=== PATIENT | male | born 2000 | race Asian ===

== ENCOUNTER 2022-06-19 23:45 | Inpatient (IN) ==
[2022-06-20] MEDS ORDERED: ONDANSETRON INJ 2 MG/ML 2 ML VIAL IV STA (00:07)
[2022-06-20] MEDS: MoRPHine SULFATE 4 MG/ML 1 ML CARP\\VIAL IV PRN ×2 (00:13→01:19)
[2022-06-20] MEDS ORDERED: SODIUM CHLORIDE 0.9% 1000ML 1,000 ML IV SCH (00:15)
[2022-06-20 00:32] LABS: Basophils # (auto) 0.02 K/uL (0-0.2); Basophils % (auto) 0.2 %; Eosinophils # (auto) 0.05 K/uL (0-0.50); Eosinophils % (auto) 0.5 %; Hematocrit (blood only) 43.9 % (40.1-51.0); Hemoglobin 15.3 g/dl (14.0-18.0); Immature Granulocytes # (auto) 0.03 K/uL (0.00-0.02); Immature Granulocytes % (auto) 0.3 %; Lymphocytes # (auto) 1.28 K/uL (1.2-3.4); Lymphocytes % (auto) 12.6 %; Mean Corpuscular Hemoglobin 29.8 pg (25.0-34.0); Mean Corpuscular Hgb Conc 34.9 g/dL (32.0-36.0); Mean Corpuscular Volume 85.4 fL (80.0-100.0); Mean Platelet Volume 12.4 fL (9.4-12.4); Monocytes # (auto) 0.85 K/uL (0.24-0.82); Monocytes % (auto) 8.4 %; Neutrophils # (auto) 7.93 K/uL (1.4-6.5); Platelet Count 165 K/uL (130-400); RDW Coefficient of Variation 11.5 % (11.5-14.5); RDW Standard Deviation 35.6 fL (36.4-46.3); Red Blood Count 5.14 M/uL (4.63-6.08); White Blood Count 10.16 K/ul (4.8-10.8)
[2022-06-20 00:59] LABS: Albumin Globulin Ratio 1.5 (0.9-2); Albumin Level 4.7 gm/dl (3.4-5.0); BUN Creatinine Ratio 9.4 (10-20); Calcium 9.2 mg/dl (8.5-10.1); Creatinine Clr Calc Pharmacy 152.4 ml/min; Est GFR (African American) 145.4 ml/min; Est GFR (Non-African American) 125.4 ml/min; Globulin 3.2 gm/dl (2.5-4.0); Potassium 3.9 mmol/L (3.5-5.1); Total Protein 7.9 gm/dl (6.0-8.3)
--- NOTE | 2022-06-20 01:38 | Emergency Department Note ---
History of Present Illness General Chief complaint: Abdominal Pain Stated complaint: ABD PAIN - SEEN EARLIER FOR ACUTE CHOLECYSTITIS Time Seen by Provider: 06/19/22 23:51 History of Present Illness Maximum Pain Intensity: 6 This is a 22-year-old male returning to the ER complaining of worsening abdominal pain. The patient was seen and evaluated earlier this complaint and did have a CT scan that did return as positive for acute cholecystitis. The patient was evaluated at bedside by general surgery at that visit, who recommended admission with antibiotics and likely surgical intervention. The patient elected for more conservative treatment with antibiotics and ultimately left AMA around 6 PM. The patient states that he went home and ate food around 6:30 PM, and by 7 PM had worsening pain. He did try to get a few hours of sleep before becoming unable to tolerate the pain any longer. The patient now returns to the ER for further evaluation. He has not had fevers or chills. No vomiting. He rates the pain primarily a 6/10 and more left-sided than right- sided. No lower pain. Home Medications Medication Instructions Recorded Confirmed Type amoxicillin 875 mg-potassium 1 tab PO BID #28 tabs 06/19/22 06/20/22 Rx clavulanate 125 mg tablet Allergies Allergy/AdvReac Type Severity Reaction Status Date / Time No Known Allergies Allergy Unverified 06/19/22 15:27 Past Med/Surg History Medical History No pertinent family history No pertinent past medical history Surgical History No pertinent past surgical history Social History Smoking Status: Never smoker Preferred Language: Albanian Communication Tools: IPad Feels Safe at Home: Yes Review of Systems A total of 10 systems reviewed and were otherwise negative Physical Exam Vital Signs Vital Signs - 24 hr 06/19/22 23:50 06/20/22 00:15 06/20/22 01:21 Temperature 36.6 C Temperature Source Temporal Artery Scan Pulse Rate 85 Pulse Rate [Finger] 73 Respiratory Rate 18 18 Respiratory Effort / Characteristics Non-Labored Spontaneous Respiratory Depth Normal Normal Blood Pressure 117/69 Blood Pressure [Right Arm] 114/68 126/70 Blood Pressure Mean 85 Blood Pressure Mean [Right Arm] 83 88 Pulse Oximetry 96 98 Oxygen Delivery Method Room Air Sepsis Recent Fever Within 48 Hours No Sepsis New/Unexplained Change in Mental Status N/A Sepsis Action Taken by Nursing No Action Required 06/20/22 02:00 Temperature Temperature Source Pulse Rate Pulse Rate [Finger] 71 Respiratory Rate 18 Respiratory Effort / Characteristics Respiratory Depth Blood Pressure Blood Pressure [Right Arm] 122/75 Blood Pressure Mean Blood Pressure Mean [Right Arm] 90 Pulse Oximetry 98 Oxygen Delivery Method Room Air Sepsis Recent Fever Within 48 Hours Sepsis New/Unexplained Change in Mental Status Sepsis Action Taken by Nursing VITALS: Vitals are noted on the nurse's note and reviewed by myself. Vital s igns stable. GENERAL: Well-developed, well-nourished, male, who is in no acute distress and resting comfortably. Patient is cooperative with the examination. HEAD: Normocephalic atraumatic. HEART: Regular rate and rhythm without murmurs gallops or rubs. LUNGS: Clear to auscultation bilaterally without wheezes, rales or rhonchi. No retractions or accessory muscle use. ABDOMEN: Positive normal bowel sounds x 4. Soft with upper abdominal tenderness on both the right and left sides. No lower tenderness. No CVA tenderness. MUSCULOSKELETAL: No muscle atrophy, erythema, or edema noted. Full range of motion in all extremities. NEURO: Patient was alert and oriented to person place and time. CN II through XII grossly intact. Course Administered Medications Morphine Sulfate (Morphine Sulfate 4 Mg/Ml 1 Ml Carp\Vial) 4 mg IV Q30M PRN PRN Reason: Pain Stop: 07/04/22 00:06 Last Admin: 06/20/22 01:19 Dose: 4 mg Documented By: Admin: 06/20/22 00:13 Dose: 4 mg Documented By: DANILO Discontinued Medications Sodium Chloride (Nss 1000ml) 1,000 mls @ 999 mls/hr IV .Q1H1M JENAE Stop: 06/20/22 01:15 Last Infusion: 06/20/22 01:15 Dose: 0 mls/hr Documented By: Admin: 06/20/22 00:12 Dose: 999 mls/hr Documented By: DANILO Ondansetron HCl (Ondansetron Inj 2 Mg/Ml 2 Ml Vial) 4 mg IV NOW STA Stop: 06/20/22 00:08 Last Admin: 06/20/22 00:13 Dose: 4 mg Documented By: DANILO Medical Decision Making Differential Diagnosis Differential diagnosis: Etiologies such as biliary colic, cholecystitis, hepatitis, pancreatitis, cardiac disease, pancreatitis, gastritis, peptic ulcer disease, appendicitis, cystitis, diverticulitis, mesenteric ischemia, inflammatory bowel disease, ileus, bowel obstruction, testicular/adnexal torsion, aortic pathology, shingles, as well as others were considered Laboratory Data Result diagrams: 06/19/22 00:17 06/19/22 00:17 Lab Results 06/19/22 06/19/22 Range/Units 00:17 00:17 WBC 10.16 (4.8-10.8) K/ul RBC 5.14 (4.63-6.08) M/uL Hgb 15.3 (14.0-18.0) g/dl Hct 43.9 (40.1-51.0) % MCV 85.4 (80.0-100.0) fL MCH 29.8 (25.0-34.0) pg MCHC 34.9 (32.0-36.0) g/dL RDW Std Deviation 35.6 L (36.4-46.3) fL RDW Coeff of Yasir 11.5 (11.5-14.5) % Plt Count 165 (130-400) K/uL MPV 12.4 (9.4-12.4) fL Immature Gran % (Auto) 0.3 % Neut % (Auto) 78.0 % Lymph % (Auto) 12.6 % [place] % (Auto) 8.4 % Eos % (Auto) 0.5 % Baso % (Auto) 0.2 % Neut # (Auto) 7.93 H (1.4-6.5) K/uL Lymph # (Auto) 1.28 (1.2-3.4) K/uL [place] # (Auto) 0.85 H (0.24-0.82) K/uL Eos # (Auto) 0.05 (0-0.50) K/uL Baso # (Auto) 0.02 (0-0.2) K/uL Immature Gran # (Auto) 0.03 H (0.00-0.02) K/uL Sodium 140 (136-145) mmol/L Potassium 3.9 (3.5-5.1) mmol/L Chloride 104 (98-107) mmol/L Carbon Dioxide 31 (21-32) mmol/L Anion Gap 5 (3-11) BUN 8 (6-23) mg/dl Creatinine 0.85 (0.6-1.4) mg/dl Est Cr Clr Drug Dosing 152.4 ml/min Est GFR ( Amer) 145.4 ml/min Est GFR (Non-Af Amer) 125.4 ml/min BUN/Creatinine Ratio 9.4 L (10-20) Glucose 88 (70-99(Fasting)) mg/dl Calcium 9.2 (8.5-10.1) mg/dl Total Bilirubin 1.0 (0.2-1.0) mg/dl AST 13 (13-39) U/L ALT 9 (7-52) U/L Alkaline Phosphatase 52 (34-104) U/L Total Protein 7.9 (6.0-8.3) gm/dl Albumin 4.7 (3.4-5.0) gm/dl Globulin 3.2 (2.5-4.0) gm/dl Albumin/Globulin Ratio 1.5 (0.9-2) Lipase 13 (11-82) U/L Imaging Data Radiologist's Impression: Preliminary Findings Only See Final Report For Complete FindingsUS RUQ: No prior exam for comparison. Limited visualization of the pancreas with visualized portion unremarkable. The liver measures 17.4 cm, otherwise unremarkable pain Over distended gallbladder with gallbladder wall measuring 2.1 mm. There is pericholecystic fluid with areas of mild wall edema. There is sludge within the gallbladder with multiple small stones. These findings suggest acute cholecystitis. The common bile duct measures 4.5 mm, within normal limits. Questionable stones at the level of the cystic duct. Mild free fluid near the gallbladder fossa. Radiologist:Claudia Camarena MD [facility] Narrative Physical exam and history were performed. Nursing notes, EMR, and Medication List were personally reviewed. Patient appears to have acute cholecystitis on CT scan a few hours ago. The patient left AGAINST MEDICAL ADVICE at initial visit, but now returns as pain is worse and continues. He does not appear toxic on examination and is afebrile. IV access was established and labs were obtained. He was hydrated with normal saline and given IV morphine and IV Zofran for comfort. Patient's blood work is as above and was reviewed. He does not have a significantly elevated white blood cell count, gross anemia, bandemia, or significant electrolyte imbalance. Lipase and transaminases are not diagnostic. COVID from earlier today was negative and this was not repeated. I did reach out to general surgery, Dr. Rainey, who had seen the patient earlier. Recommendation was for ultrasound, which was performed and reviewed by myself and radiology continuing to show acute cholecystitis. Dr. Rainey will admit the patient for further care. Please see Dr. Rainey's dictation for further patient course, plan, disposition. The chart was completed utilizing [employer] Voice Recognition Software. Grammatical errors, random word insertions, pronoun errors, and incomplete sentences are an occasional consequence of this system due to software limitations, ambient noise, and hardware issues. Any formal questions or concerns about the content, text, or information contained within the body of this dictation should be directly addressed to the provider for clarification. . Impression & Plan Acute cholecystitis Discharge Plan Visit Data Chief Complaint: Abdominal Pain Stated Complaint: ABD PAIN - SEEN EARLIER FOR ACUTE CHOLECYSTITIS ED Provider: Savana Obrien ED Midlevel Provider: Berny Dolan Discharge Problem: Acute cholecystitis Patient Disposition: Admitted As Inpatient Discharge Instructions Interventions: ED Discharge Assessment Last Done: 06/20/22 04:28 Forms Stand Alone Forms: [facility] Prescriptions Prescriptions: No Action amoxicillin-pot clavulanate 875-125 mg tablet 1 tab PO BID Qty: 28 0RF Referrals Referrals: [facility] [Primary Care Provider] -
--- NOTE | 2022-06-20 02:22 | Surgery Consultation ---
Date of Consultation June 20, 2022 Assessment & Plan (1) Acute cholecystitis: pt is a 22 year-old male who presents to ER with one day history abdominal pain, IMP: acute cholecystitis, cholelithiasis, Plan : I recommend to admit pt to hospital , NPO IV fluid, iv antibiotic, control pain, base on CT finding- abnormally gallbladder position, order MRCP, once confirm diagnosis, I recommend to do laparoscopic cholecystectomy, possible open or cholangiogram, D/W benefits, risks and alternatives of the surgery, the risks - infection, bleeding, injury other organs, CBD stone may need ERCP, incisional hernia, pt understood, he agrees with the plan and surgery, I answered all questions, History of Present Illness Reason for Consultation: acute cholecystitis Requesting Physician: Savana Obrien MD History of Present Illness History of Present Illness General Chief complaint: Abdominal Pain Stated complaint: ABD PAIN - SEEN EARLIER FOR ACUTE CHOLECYSTITIS Time Seen by Provider: 06/19/22 23:51 History of Present Illness Maximum Pain Intensity: 6 This is a 22-year-old male returning to the ER complaining of worsening abdominal pain. The patient was seen and evaluated earlier this complaint and did have a CT scan that did return as positive for acute cholecystitis. The patient was evaluated at bedside by general surgery at that visit, who recommended admission with antibiotics and likely surgical intervention. The patient elected for more conservative treatment with antibiotics and ultimately left AMA around 6 PM. The patient states that he went home and ate food around 6:30 PM, and by 7 PM had worsening pain. He did try to get a few hours of sleep before becoming unable to tolerate the pain any longer. The patient now returns to the ER for further evaluation. He has not had fevers or chills. No vomiting. He rates the pain primarily a 6/10 and more left-sided than right- sided. No lower pain. I ( Sonia Rainey MD ) got a call for re-consult acute cholecystitis, I reviewed pt's H/P, labs, U/S study and CT scan with pt, pt saw pt early for acute abdominal pain, I recommend to admit pt hospital to do MRCP then do laparoscopic cholecystectomy, but pt wants to go home, at that time, pt had no significant abdominal pain, pt stayed at home 4 hours later, pt developed LUQ and RUQ pain again, then pt came to ER . Home Medications Medication Instructions Recorded Confirmed Type amoxicillin 875 mg-potassium 1 tab PO BID #28 tabs 06/19/22 06/20/22 Rx clavulanate 125 mg tablet Allergies Allergy/AdvReac Type Severity Reaction Status Date / Time No Known Allergies Allergy Unverified 06/19/22 15:27 Past Med/Surg History Medical History No pertinent family history No pertinent past medical history Surgical History No pertinent past surgical history Social History Smoking Status: Never smoker Preferred Language: [place]ese Communication Tools: IPad Feels Safe at Home: Yes Allergies Allergy/AdvReac Type Severity Reaction Status Date / Time No Known Allergies Allergy Unverified 06/19/22 15:27 Home Medications Medication Instructions Recorded Confirmed Type amoxicillin 875 mg-potassium 1 tab PO BID #28 tabs 06/19/22 06/20/22 Rx clavulanate 125 mg tablet Patient History Medical History No pertinent family history No pertinent past medical history Surgical History No pertinent past surgical history Social History Smoking Status: Never smoker Preferred Language: [place]ese Communication Tools: IPad Feels Safe at Home: Yes Physical Exam Constitutional: WD/WN, vitals as above Eyes: PERRL, conjunctivae normal, anicteric sclerae Neck: trachea midline, no thyromegaly Respiratory: normal respiratory effort, lungs clear to auscultation Cardiovascular: RRR, no murmur, no edema Gastrointestinal (Abdomen): soft, tenderness at LUQ and RUQ area, no rebound pain, no distend, BS +, Musculoskeletal: no cyanosis or clubbing, extremities motor strength 5/5 Neurologic: patellar DTR's 2+ bilat, sensation intact Psychiatric: A+Ox3, euthymic affect Results & Data ([facility]) Vital Signs (Past 12 Hours) Vital Signs Temp Pulse Pulse Resp BP BP Pulse Ox 06/20/22 01:21 73 18 126/70 98 06/20/22 00:15 114/68 06/19/22 23:50 36.6 C 85 18 117/69 96 O2 Del Method 06/20/22 01:21 Room Air 06/20/22 00:15 06/19/22 23:50 Laboratory Results Abnormal lab results 06/19/22 06/19/22 Range/Units 00:17 00:17 RDW Std Deviation 35.6 L (36.4-46.3) fL Neut # (Auto) 7.93 H (1.4-6.5) K/uL [place] # (Auto) 0.85 H (0.24-0.82) K/uL Immature Gran # (Auto) 0.03 H (0.00-0.02) K/uL BUN/Creatinine Ratio 9.4 L (10-20) Diagnostic Findings CT SCAN OF THE ABDOMEN AND PELVIS WITH IV CONTRAST CLINICAL HISTORY: Epigastric abdominal pain. COMPARISON STUDY: No priors. TECHNIQUE: Following the IV administration of 95 cc of Optiray 350, CT scan of the abdomen and pelvis is performed from the lung bases to the proximal femora. Images are reviewed in the axial, sagittal, and coronal planes. IV contrast was administered without complication. A dose lowering technique was utilized adhering to the principles of ALARA. CT DOSE: 320.09 mGy.cm FINDINGS: Lung bases: The heart is normal in size and without pericardial effusion. The lung bases are clear. Liver: The contrast-enhanced liver is normal in size, contour, and attenuation. There is no intrahepatic biliary ductal dilatation. The hepatic veins and portal veins are patent. Gallbladder: The gallbladder is markedly distended. The wall is thickened and edematous and there is surrounding fluid and inflammation. The appearance is con sistent with acute cholecystitis. A 12 mm calcified gallstone within the gallbladder neck or cystic duct as seen on axial image #103. The gallbladder is abnormally positioned, with the gallbladder neck extending below the right hemidiaphragm abutting the right adrenal gland. Spleen: Normal in size and attenuation. Pancreas: Unremarkable. Adrenal glands: Unremarkable. Kidneys: The contrast enhanced kidneys are normal in size and without hydronephrosis. The kidneys enhance symmetrically. Abdominal vasculature: The abdominal aorta is normal in course and caliber. Bowel: Mild fecal retention is seen throughout the colon. There is no bowel obstruction. The appendix is well-visualized and normal. Peritoneum: There is no intraperitoneal free air or abdominal ascites. Lymphadenopathy: None. Pelvic viscera: The bladder, prostate, and seminal vesicles are normal as visualized. Skeletal structures: No lytic or blastic lesions are seen. IMPRESSION: 1. Severe acute cholecystitis. 2. A 12 mm calcified gallstone is seen within the gallbladder neck or cystic duct in the right upper quadrant. 3. Cholecystitis is likely related to a large obstructing stone; however, the gallbladder is abnormally positioned extending posteriorly/superiorly below the right hemidiaphragm adjacent to the adrenal gland. In rare cases, gallbladder torsion can cause cholecystitis. Emergent surgical assessment is advised. 4. There is no intrahepatic biliary ductal dilatation. 5. Additional findings as above. U/S study, acute cholecystitis with multiple stones,
[2022-06-20] MEDS ORDERED: HYDROmorphone INJ 1 MG/ML SYRINGE IV PRN (04:20)
[2022-06-20] MEDS ORDERED: MoRPHine SULFATE 4 MG/ML 1 ML CARP\\VIAL IV PRN (05:40)
[2022-06-20] MEDS ORDERED: ONDANSETRON INJ 2 MG/ML 2 ML VIAL IV PRN (05:40)
[2022-06-20] MEDS ORDERED: MoRPHine SULFATE 2 MG/ML CARP IV PRN (05:40)
[2022-06-20] MEDS ORDERED: PIPERACILLIN/TAZOBACTAM 3.375 GM in DEXTROSE 5% 100 ML IV ONE (06:00)
[2022-06-20] MEDS: D5W AND 1/2NSS + 20MEQ KCL 20 MEQ/1,000 ML BAG IV SCH ×2 (06:28→19:56)
--- NOTE | 2022-06-20 07:15 | Ultrasound Report ---
US gallbladder CLINICAL HISTORY: Cholecystitis on ct. COMPARISON STUDY: CT of the abdomen and pelvis June 19, 2022. FINDINGS: Liver is sonographically normal. There is no biliary ductal dilatation. Common bile measure s 4 mm in caliber. Pancreatic body is normal. Head and tail are obscured. The gallbladder is distende d and filled with sludge. There are multiple small gallstones as well as a immobile stone within the gallbladder neck. Sonographic Muniz sign could not be assessed for in this patient given pain medica tion administration. Gallbladder wall is edematous and thickened, measuring up to 7 mm in thickness. IMPRESSION: 1. Findings suggestive of acute cholecystitis. Surgical consultation is recommended. 2. No biliary ductal dilatation. ACT 112: Negative or not required by law. Electronically signed by: Tez Thurman M.D. 06/20/2022 7:13 AM
[2022-06-20 07:51] LABS: Albumin Globulin Ratio 1.8 (0.9-2); Albumin Level 4.2 gm/dl (3.4-5.0); BUN Creatinine Ratio 8.4 (10-20); Bilirubin,Total 1.2 mg/dl (0.2-1.0); Calcium 8.6 mg/dl (8.5-10.1); Creatinine Clr Calc Pharmacy 155.8 ml/min; Est GFR (African American) 146.8 ml/min; Est GFR (Non-African American) 126.7 ml/min; Globulin 2.4 gm/dl (2.5-4.0); Potassium 3.8 mmol/L (3.5-5.1); Total Protein 6.6 gm/dl (6.0-8.3)
--- NOTE | 2022-06-20 08:39 | Magnetic Resonance Report ---
MR MRCP HISTORY: 22 years-old Male acute cholecystitis acute right upper quadrant abdominal pain COMPARISON: Gallbladder ultrasound of same day, CT abdomen and pelvis 06/19/2022. TECHNIQUE: MRCP was obtained without the use of IV contrast according to institutional protocol. FINDINGS: Study is mildly motion degraded. The imaged lower chest is unremarkable. The spleen, pancreas, liver and adrenal glands are within normal limits. Unremarkable kidneys without hydronephrosis. Aorta and I VC are unremarkable. No bowel obstruction or bowel wall thickening. Unremarkable soft tissues and oss eous structures. 12 mm gallstone is again noted within the gallbladder neck versus proximal cystic duct. The gallbladd er is distended and demonstrates wall thickening with pericholecystic fluid and edema. Trace ascites tracks along the inferior right hepatic lobe into the right paracolic gutter. No intrahepatic or extr ahepatic biliary ductal dilation. The common bile duct measures 4 mm. No choledocholithiasis. No panc reatic ductal dilation. IMPRESSION: 1. Cholelithiasis with acute cholecystitis. 2. No biliary ductal dilation or choledocholithiasis. 3. The exam is motion degraded. ACT 112: Negative or not required by law. The above report was generated using voice recognition software. It may contain grammatical, syntax o r spelling errors. Electronically signed by: Lux Whitehead M.D. 06/20/2022 8:38 AM
[2022-06-20] MEDS: PANTOprazole 40 MG in SYRINGE 0 ML IV SCH ×2 (09:35→19:59)
[2022-06-20] MEDS: HYDROmorphone INJ 0.5 MG/0.5 ML SYR IV PRN ×2 (09:39→18:14)
--- NOTE | 2022-06-20 10:46 | Surgery Progress Note ---
Date of Service June 20, 2022 Assessment & Plan (1) Acute cholecystitis: Plan: pt is a 22 year-old male who presents to ER with one day history abdominal pain, IMP: acute cholecystitis, cholelithiasis, Plan : I recommend to admit pt to hospital , NPO IV fluid, iv antibiotic, control pain, base on CT finding- abnormally gallbladder position, order MRCP, once confirm diagnosis, I recommend to do laparoscopic cholecystectomy, possible open or cholangiogram, D/W benefits, risks and alternatives of the surgery, the risks - infection, bleeding, injury other organs, CBD stone may need ERCP, incisional hernia, pt understood, he agrees with the plan and surgery, I answered all questions, 06/20/2022 10:48AM, I reviewed MRCP with pt, diagnosis- acute cholecystitis, cholelithiasis, I recommend to do laparoscopic cholecystectomy, possible open, or cholangiogram, D/W benefits, risks and alternatives of the surgery, the risks - infection,bleeding, injury other organs, biliary leak, may need ERCP, incision hernia, but pt refused to surgery, pt said his family want to keep his gallbladder, I indicated may cause gangrenous gallbladder , perforation, sepsis and , pt understood, he is still refused to do surgery, I answered all questions, base on pt has LUQ pain, consult GI for EGD to R/O gastric ulcer, pt agrees with the EGD, continue conservative treatment, Admission and Anticipated Discharge Date Admission Date: June 20, 2022 Subjective pt had MRCP done, I reviewed MRCP with pt, IMPRESSION: 1. Cholelithiasis with acute cholecystitis. 2. No biliary ductal dilation or choledocholithiasis. 3. The exam is motion degraded. pt is still have LUQ and epigastric pain, no nausea, no vomiting, no fever, Physical Exam Constitutional: WD/WN, vitals as above Eyes: PERRL, conjunctivae normal, anicteric sclerae Neck: trachea midline, no thyromegaly Respiratory: normal respiratory effort, lungs clear to auscultation Cardiovascular: RRR, no murmur, no edema Gastrointestinal (Abdomen): mild tenderness at LUQ and epigatsric and RUQ area, no rebound pain, no distend, BS +, Musculoskeletal: no cyanosis or clubbing, extremities motor strength 5/5 Neurologic: patellar DTR's 2+ bilat, sensation intact Psychiatric: A+Ox3, euthymic affect Results & Data ([facility]) Vital Signs (Past 12 Hours) Vital Signs Temp Pulse Pulse Resp BP BP Pulse Ox 06/20/22 05:00 37.4 C 68 14 119/69 96 06/20/22 04:46 70 18 120/58 L 98 06/20/22 02:00 71 18 122/75 98 06/20/22 01:21 73 18 126/70 98 06/20/22 00:15 114/68 06/19/22 23:50 36.6 C 85 18 117/69 96 O2 Del Method 06/20/22 05:00 Room Air 06/20/22 04:46 Room Air 06/20/22 02:00 Room Air 06/20/22 01:21 Room Air 06/20/22 00:15 06/19/22 23:50 Laboratory Results Abnormal lab results 06/19/22 06/19/22 06/20/22 Range/Units 00:17 00:17 05:45 RDW Std Deviation 35.6 L (36.4-46.3) fL Neut # (Auto) 7.93 H (1.4-6.5) K/uL [place] # (Auto) 0.85 H (0.24-0.82) K/uL Immature Gran # (Auto) 0.03 H (0.00-0.02) K/uL BUN/Creatinine Ratio 9.4 L 8.4 L (10-20) Total Bilirubin 1.2 H (0.2-1.0) mg/dl Globulin 2.4 L (2.5-4.0) gm/dl Diagnostic Findings MR MRCP HISTORY: 22 years-old Male acute cholecystitis acute right upper quadrant abdominal pain COMPARISON: Gallbladder ultrasound of same day, CT abdomen and pelvis 06/19/2022. TECHNIQUE: MRCP was obtained without the use of IV contrast according to institutional protocol. FINDINGS: Study is mildly motion degraded. The imaged lower chest is unremarkable. The spleen, pancreas, liver and adrenal glands are within normal limits. Unremarkable kidneys without hydronephrosis. Aorta and IVC are unremarkable. No bowel obstruction or bowel wall thickening. Unremarkable soft tissues and osseous structures. 12 mm gallstone is again noted within the gallbladder neck versus proximal cystic duct. The gallbladder is distended and demonstrates wall thickening with pericholecystic fluid and edema. Trace ascites tracks along the inferior right hepatic lobe into the right paracolic gutter. No intrahepatic or extrahepatic biliary ductal dilation. The common bile duct measures 4 mm. No choledocholithiasis. No pancreatic ductal dilation.
--- NOTE | 2022-06-20 11:27 | Gastrointestinal Consultation ---
Date of Consultation June 20, 2022 Assessment & Plan (1) Acute cholecystitis: Patient is aware of the risks involved with his decision to decline cholecystectomy. We did discuss that GI intervention with EGD would NOT have any impact on findings of acute cholecystitis. (2) Abdominal pain: General surgery recommended an EGD for this patient, but patient was requesting alternative option to EGD. I discussed that the alternative would be to take BID PPI therapy & check an H Pylori stool antigen and this would be acceptable as he is not bleeding and has no emergent need for an EGD. After much deliberation, patient opted for an EGD. He has been NPO. -Keep NPO -Protonix 40 mg BID -EGD today Supervising Physician Co-Signing Physician Notes Agree with MARITA Schrader as above Abd: Soft, Tender LUQ, ND, +BS Continue current therapy EGD now Further recommendations to follow History of Present Illness Reason for Consultation: "LUQ pain, EGD to r/o gastric ulcer" Requesting Physician: Dr. Rainey Attending Physician: Sonia Rainey MD History of Present Illness Patient is a 22 yo male who presented to the emergency room multiple times (once after leaving [place]) due to abdominal pain. Throughout his work-up, he has had an US, CT scan, & MRCP that show acute cholecystitis and a 1.2 cm stone in either the gallbladder neck vs the cystic duct. Total bili is 1.2. AST & ALT unremarkable. WBC count 11,490. Patient has been seen by general surgery. Despite counseling patient is refusing a cholecystectomy. General surgery has suggested to the patient to consider an EGD to rule out other causes of abdominal pain. Patient has no pertinent family history or personal medical history. His BUN is unremarkable. H/H unremarkable. He is not on PPI therapy. He is presently on IV Zosyn due to his acute cholecystitis. Denies NSAID use. No tobacco use at present. Pain is worsened with eating. Allergies Allergy/AdvReac Type Severity Reaction Status Date / Time No Known Allergies Allergy Unverified 06/19/22 15:27 Home Medications Medication Instructions Recorded Confirmed Type amoxicillin 875 mg-potassium 1 tab PO BID #28 tabs 06/19/22 06/20/22 Rx clavulanate 125 mg tablet Patient History Medical History (Updated 06/20/22 @ 15:04 by Omar Naylor MD) Encounter for pre-operative examination No pertinent family history No pertinent past medical history Surgical History No pertinent past surgical history Social History Smoking Status: Never smoker Hx Alcohol Use: No Hx Substance Use: No Preferred Language: German Communication Ability: Effective Communication Tools: IPad Area Director Required: No Current Living Situation: Alone Feels Safe at Home: Yes Safety Concerns: Feels Safe At This Time Assistive Devices: None Review of Systems Constitutional: no fever and no chills Respiratory: no cough and no dyspnea Cardiovascular: no chest pain Gastrointestinal: + abdominal pain Integumentary: no problem reported Psychiatric: no problem reported Hematologic / Lymphatic: no unexplained weight loss Physical Exam Constitutional: well developed Respiratory: normal respiratory effort Cardiovascular: Rate/Rhythm: regular rate Gastrointestinal (Abdomen): Inspection/Auscultation: abdomen normal to inspection Percussion/Palpation: + abdomen tender Musculoskeletal: Head/Neck/Chest: normocephalic Psychiatric: Orientation: alert and oriented x 3 Results & Data ([facility]) Vital Signs (Past 12 Hours) Vital Signs Temp Pulse Pulse Resp BP BP Pulse Ox 06/20/22 05:00 37.4 C 68 14 119/69 96 06/20/22 04:46 70 18 120/58 L 98 06/20/22 02:00 71 18 122/75 98 06/20/22 01:21 73 18 126/70 98 06/20/22 00:15 114/68 06/19/22 23:50 36.6 C 85 18 117/69 96 O2 Del Method 06/20/22 05:00 Room Air 06/20/22 04:46 Room Air 06/20/22 02:00 Room Air 06/20/22 01:21 Room Air 06/20/22 00:15 06/19/22 23:50 PG Care Time/CCT Total # of Minutes Spent Total Time Spent with Patient: Total time spent is greater than 50% in coordination of care (as documented) at patient's floor/unit and/or counseling patient: Coding Level of Care Code 17896 Inpt Consult Level 4 Diagnoses Acute cholecystitis K81.0 Abdominal pain R10.9
[2022-06-20] MEDS: PIPERACILLIN/TAZOBACTAM 3.375 GM in DEXTROSE 5% 100 ML IV SCH ×2 (12:07→19:56)
--- NOTE | 2022-06-20 15:02 | Anesthesiology Consultation ---
Date of Service June 20, 2022 Assessment & Plan (1) Encounter for pre-operative examination: Chart Review Chart Review: Acceptable Risk for Surgery, Patient NOT seen in Pre Admission Testing and entry clerk initiated Consults Requested none History Surgery Operation Date: 06/20/22 09:15 Proposed Procedures p Laparoscopic Cholecystectomy - Sonia Rainey MD Operation Date: 06/20/22 16:00 Proposed Procedures p Esophagogastroduodenoscopy Dr Bailey - Tal Bailey, DO Height/Weight Height: 6 ft Weight: 81.1 kg Allergies Allergy/AdvReac Type Severity Reaction Status Date / Time No Known Allergies Allergy Unverified 06/19/22 15:27 Medications Home Medications Medication Instructions Recorded Confirmed Last Taken amoxicillin 875 mg-potassium 1 tab PO BID #28 tabs 06/19/22 06/20/22 Unknown clavulanate 125 mg tablet Active Medications Generic Name Dose Route Start Last Admin Trade Name Freq PRN Reason Stop Dose Admin Hydromorphone HCl 0.5 mg 06/20/22 06:02 06/20/22 09:39 Hydromorphone Inj 0.5 Mg/0.5 Ml Syr IV 07/04/22 06:01 0.5 mg Q6H PRN Administration pain 1-5 Pantoprazole Sodium 40 mg/ 10 mls @ 5 mls/min 06/20/22 09:00 06/20/22 09:35 Syringe IV 07/20/22 08:59 5 mls/min BID JENAE Administration Potassium Chloride/Dextrose/Sod Cl 20 meq in 1,000 mls @ 100 mls/hr 06/20/22 06:00 06/20/22 06:28 D5w And 1/2nss + 20meq Kcl IV 07/20/22 05:59 100 mls/hr .Q10H JENAE Administration Protocol Piperacillin Sod/Tazobactam 115 mls @ 28.75 mls/hr 06/20/22 12:00 06/20/22 12:07 Sod 3.375 gm/ Dextrose IV 06/30/22 11:59 28.8 mls/hr Q8H JENAE Administration Protocol Past Medical History Medical History (Updated 06/20/22 @ 15:04 by Omar Naylor MD) Encounter for pre-operative examination No pertinent family history No pertinent past medical history Past Surgical History Surgical History No pertinent past surgical history Social History Smoking Status: Never smoker Hx Alcohol Use: No Hx Substance Use: No Physical Exam Vital Signs Last Vital Signs Temp 37.4 C 06/20/22 05:00 Pulse 68 06/20/22 05:00 Resp 14 06/20/22 05:00 BP 119/69 06/20/22 05:00 Pulse Ox 96 06/20/22 05:00 O2 Del Method 06/20/22 05:00 Testing Laboratory Results 06/19/22 00:17 06/20/22 05:45 Other Testing 06/19/22 CT abdomen and pelvis w/contrast IMPRESSION: 1. Severe acute cholecystitis. 2. A 12 mm calcified gallstone is seen within the gallbladder neck or cystic duct in the right upper quadrant. 3. Cholecystitis is likely related to a large obstructing stone; however, the gallbladder is abnormally positioned extending posteriorly/superiorly below the right hemidiaphragm adjacent to the adrenal gland. In rare cases, gallbladder torsion can cause cholecystitis. Emergent surgical assessment is advised. 4. There is no intrahepatic biliary ductal dilatation. 5. Additional findings as above.
[2022-06-20] MEDS ORDERED: PROPOFOL IV EMULSION 10 MG/ML 20 ML VIAL IV ONE (16:02)
[2022-06-20] MEDS ORDERED: LIDOCAINE 2% MPF LOCAL 5 ML VIAL INFIL ONE (16:02)
--- NOTE | 2022-06-20 16:55 | GI REPORT ---
Patient Name: Maxine Martinez Procedure Date: 06/20/2022 4:07 PM Date of : 2000 Admit Type: Inpatient Age: 22 Gender: Male Attending MD: Tal Bailey DO Procedure: Upper GI endoscopy Providers: Tal Bailey DO Referring MD: Rochelle Booth Md Indications: Abdominal pain in the left upper quadrant Medicines: Monitored Anesthesia Care Complications: No immediate complications. Estimated Blood Loss: Estimated blood loss: none. Procedure: Pre-Anesthesia Assessment: - Prior to the procedure, a History and Physical was performed, and patient medications and allergies were reviewed. The patient's tolerance of previous anesthesia was also reviewed. The risks and benefits of the procedure and the sedation options and risks were discussed with the patient. All questions were answered, and informed consent was obtained. Prior Anticoagulants: The patient has taken no previous anticoagulant or antiplatelet agents. ASA Grade Assessment: I - A normal, healthy patient. After reviewing the risks and benefits, the patient was deemed in satisfactory condition to undergo the procedure. After obtaining informed consent, the endoscope was passed under direct vision. Throughout the procedure, the patient's blood pressure, pulse, and oxygen saturations were monitored continuously. The Endoscope was introduced through the mouth, and advanced to the second part of duodenum. The upper GI endoscopy was accomplished without difficulty. The patient tolerated the procedure well. Findings: The esophagus was normal. Localized mild inflammation characterized by erythema was found in the gastric antrum. Biopsies were taken with a cold forceps for histology. The examined duodenum was normal. Impression: - Normal esophagus. - Gastritis. Biopsied. - Normal examined duodenum. Recommendation: - Return patient to [facility] for ongoing care. - Clear liquid diet. - Continue present medications. - Await pathology results. Tal Bailey DO 06/20/2022 4:55:02 PM This report has been signed electronically. Note Initiated On: 06/20/2022 4:07 PM Number of Addenda: 0 I attest to the content of the Intraoperative Record and orders documented therein, exceptions below {[id number]}
--- NOTE | 2022-06-20 17:21 | Anesthesiology Progress Note ---
Date of Service June 20, 2022 Anesthesia Post Procedure Vital Signs Vital Signs: Temp Pulse Pulse Resp BP BP Pulse Ox 06/20/22 17:07 66 18 116/64 96 06/20/22 16:53 72 16 109/62 100 06/20/22 16:37 84 14 116/62 100 06/20/22 15:19 37.2 C 88 18 123/76 100 06/20/22 05:00 37.4 C 68 14 119/69 96 06/20/22 04:46 70 18 120/58 L 98 06/20/22 02:00 71 18 122/75 98 06/20/22 01:21 73 18 126/70 98 06/20/22 00:15 114/68 06/19/22 23:50 36.6 C 85 18 117/69 96 O2 Del Method 06/20/22 17:07 Room Air 06/20/22 16:53 Room Air 06/20/22 16:37 Room Air 06/20/22 15:19 Room Air 06/20/22 05:00 Room Air 06/20/22 04:46 Room Air 06/20/22 02:00 Room Air 06/20/22 01:21 Room Air 06/20/22 00:15 06/19/22 23:50 Pain Intensity Abdomen: Pain Intensity: 6 Transfer of Care Handoff Completed per policy Notes Mental Status: alert / awake / arousable Patient Amnestic to Procedure: Yes Nausea / Vomiting: adequately controlled Pain: adequately controlled Airway Patency, RR, SpO2: stable & adequate BP & HR: stable & adequate Hydration State: stable & adequate Anesthetic Complications: no major complications apparent and Pt Satisfied with anesthetic care
[2022-06-21] MEDS: PIPERACILLIN/TAZOBACTAM 3.375 GM in DEXTROSE 5% 100 ML IV SCH ×3 (03:41→21:30)
[2022-06-21] MEDS: D5W AND 1/2NSS + 20MEQ KCL 20 MEQ/1,000 ML BAG IV SCH ×3 (03:41→21:31)
[2022-06-21 06:28] LABS: Basophils # (auto) 0.02 K/uL (0-0.2); Basophils % (auto) 0.2 %; Eosinophils # (auto) 0.03 K/uL (0-0.50); Eosinophils % (auto) 0.4 %; Hematocrit (blood only) 40.9 % (40.1-51.0); Hemoglobin 14.4 g/dl (14.0-18.0); Immature Granulocytes # (auto) 0.02 K/uL (0.00-0.02); Immature Granulocytes % (auto) 0.2 %; Lymphocytes # (auto) 1.46 K/uL (1.2-3.4); Lymphocytes % (auto) 18.2 %; Mean Corpuscular Hemoglobin 29.9 pg (25.0-34.0); Mean Corpuscular Hgb Conc 35.2 g/dL (32.0-36.0); Mean Corpuscular Volume 84.9 fL (80.0-100.0); Mean Platelet Volume 12.7 fL (9.4-12.4); Neutrophils # (auto) 5.71 K/uL (1.4-6.5); Platelet Count 160 K/uL (130-400); RDW Coefficient of Variation 11.4 % (11.5-14.5); RDW Standard Deviation 34.9 fL (36.4-46.3); Red Blood Count 4.82 M/uL (4.63-6.08); White Blood Count 8.04 K/ul (4.8-10.8)
[2022-06-21 06:58] LABS: Alanine Aminotransferase 57 U/L (7-52); Albumin Globulin Ratio 1.7 (0.9-2); Albumin Level 4.5 gm/dl (3.4-5.0); Alkaline Phosphatase 98 U/L (34-104); Anion Gap 6 (3-11); Aspartate Aminotransferase 41 U/L (13-39); BUN Creatinine Ratio 5.4 (10-20); Bilirubin,Total 1.3 mg/dl (0.2-1.0); Blood Urea Nitrogen 4 mg/dl (6-23); Calcium 9.1 mg/dl (8.5-10.1); Carbon Dioxide 30 mmol/L (21-32); Chloride 101 mmol/L (98-107); Creatinine Clr Calc Pharmacy 174.8 ml/min; Est GFR (African American) > 150.0 ml/min; Est GFR (Non-African American) 132.8 ml/min; Globulin 2.6 gm/dl (2.5-4.0); Glucose 98 mg/dl (70-99(Fasting)); Lipase 6 U/L (11-82); Potassium 3.3 mmol/L (3.5-5.1); Sodium 137 mmol/L (136-145); Total Protein 7.1 gm/dl (6.0-8.3)
[2022-06-21] MEDS: PANTOprazole 40 MG in SYRINGE 0 ML IV SCH ×2 (08:44→21:30)
[2022-06-21] MEDS: HYDROmorphone INJ 0.5 MG/0.5 ML SYR IV PRN ×2 (08:49→21:49)
--- NOTE | 2022-06-21 14:15 | Surgery Progress Note ---
Date of Service June 21, 2022 Assessment & Plan (1) Acute cholecystitis: Plan: pt is a 22 year-old male who presents to ER with one day history abdominal pain, IMP: acute cholecystitis, cholelithiasis, Plan : I recommend to admit pt to hospital , NPO IV fluid, iv antibiotic, control pain, base on CT finding- abnormally gallbladder position, order MRCP, once confirm diagnosis, I recommend to do laparoscopic cholecystectomy, possible open or cholangiogram, D/W benefits, risks and alternatives of the surgery, the risks - infection, bleeding, injury other organs, CBD stone may need ERCP, incisional hernia, pt understood, he agrees with the plan and surgery, I answered all questions, 06/20/2022 10:48AM, I reviewed MRCP with pt, diagnosis- acute cholecystitis, cholelithiasis, I recommend to do laparoscopic cholecystectomy, possible open, or cholangiogram, D/W benefits, risks and alternatives of the surgery, the risks - infection,bleeding, injury other organs, biliary leak, may need ERCP, incision hernia, but pt refused to surgery, pt said his family want to keep his gallbladder, I indicated may cause gangrenous gallbladder , perforation, sepsis and , pt understood, he is still refused to do surgery, I answered all questions, base on pt has LUQ pain, consult GI for EGD to R/O gastric ulcer, pt agrees with the EGD, continue conservative treatment, 06/21/2022 2:10PM F/U acute cholecystitis, cholelithiasis, I reviewed GI note and EGD finding, I recommend to do laparoscopic cholecystectomy, possible open, or cholangiogram, D/W benefits, risks and alternatives of the surgery, the risks - infection,bleeding, injury other organs, biliary leak, may need ERCP, incision hernia, but pt refused to surgery, pt said his family and he agree with surgery, pt signed informed consent, I answered all questions, Admission and Anticipated Discharge Date Admission Date: June 20, 2022 Supervising Physician Co-Signing Physician Notes Agree with MARITA Schrader as above Abd: Soft, Tender LUQ, ND, +BS Continue current therapy EGD now Further recommendations to follow Subjective pt had MRCP done, I reviewed MRCP with pt, IMPRESSION: 1. Cholelithiasis with acute cholecystitis. 2. No biliary ductal dilation or choledocholithiasis. 3. The exam is motion degraded. pt is still have LUQ and epigastric pain, no nausea, no vomiting, no fever, 06/21/2022 2:10PM pt is still have RUQ and LUQ pain, no nausea and vomiting, no fever, EGD- gastritis. Physical Exam Constitutional: WD/WN, vitals as above Eyes: PERRL, conjunctivae normal, anicteric sclerae Neck: trachea midline, no thyromegaly Respiratory: normal respiratory effort, lungs clear to auscultation Cardiovascular: RRR, no murmur, no edema Gastrointestinal (Abdomen): soft, tenderness at RUQ, no rebound pain, no distend, NBS +, Musculoskeletal: no cyanosis or clubbing, extremities motor strength 5/5 Neurologic: patellar DTR's 2+ bilat, sensation intact Psychiatric: A+Ox3, euthymic affect Results & Data ([facility]) Vital Signs (Past 12 Hours) Vital Signs Temp Pulse Resp BP Pulse Ox O2 Del Method 06/21/22 11:41 37.1 C 75 18 108/63 97 Room Air 06/21/22 07:57 36.3 C L 06/21/22 07:47 75 18 108/63 97 Room Air Laboratory Results Abnormal lab results 06/21/22 06/21/22 Range/Units 05:25 05:25 RDW Std Deviation 34.9 L (36.4-46.3) fL RDW Coeff of Yasir 11.4 L (11.5-14.5) % MPV 12.7 H (9.4-12.4) fL Potassium 3.3 L (3.5-5.1) mmol/L BUN 4 L (6-23) mg/dl BUN/Creatinine Ratio 5.4 L (10-20) Total Bilirubin 1.3 H (0.2-1.0) mg/dl AST 41 H (13-39) U/L ALT 57 H (7-52) U/L Lipase 6 L (11-82) U/L
[2022-06-21] MEDS ORDERED: BUPIVACAINE 0.5 % 5 MG/1 ML MPF 30ML VIAL ONE (14:47)
[2022-06-21] MEDS ORDERED: LIDOCAINE 1% LOCAL 20 ML VIAL ONE (14:47)
[2022-06-21] MEDS ORDERED: BACITRACIN OINT 15 GM TUBE ONE (14:54)
[2022-06-21] MEDS ORDERED: MIDAZOLAM HCL 1 MG/ML 2ML VIAL ONE (15:35)
[2022-06-21] MEDS ORDERED: fentaNYL citrate 100 MCG/2 ML VIAL ONE ×4 (15:35→19:11)
--- NOTE | 2022-06-21 16:04 | History & Physical Bridge Note ---
Date of Service June 21, 2022 History & Physical Bridge Note I have examined the patient, reviewed the History & Physical and in the interval since the performance of the History & Physical I have noted the following changes of clinical significance: no changes noted Supervising Physician Co-Signing Physician Notes Agree with MARITA Schrader as above Abd: Soft, Tender LUQ, ND, +BS Continue current therapy EGD now Further recommendations to follow
[2022-06-21] MEDS ORDERED: ceFAZolin 330 MG/ML 1 GM VIAL ONE (16:28)
[2022-06-21] MEDS ORDERED: GLYCOPYRROLATE 0.2 MG/ML VIAL ONE (16:42)
[2022-06-21] MEDS ORDERED: DEXAMETHASONE SOD INJ 4 MG/ML VIAL ONE (16:42)
[2022-06-21] MEDS ORDERED: ONDANSETRON INJ 2 MG/ML 2 ML VIAL ONE (16:42)
[2022-06-21] MEDS ORDERED: NEOSTIGMINE METHYLSULFATE 1 MG/ML 10ML VIAL ONE (16:42)
[2022-06-21] MEDS ORDERED: PROPOFOL IV EMULSION 10 MG/ML 20 ML VIAL IV ONE (16:42)
[2022-06-21] MEDS ORDERED: LIDOCAINE 2% 20 MG/ML 5 ML SYR IV ONE (16:42)
[2022-06-21] MEDS ORDERED: ROCURONIUM BROMIDE 10 MG/ML 5 ML VIAL IV ONE ×4 (16:42→18:08)
[2022-06-21] MEDS ORDERED: ceFAZolin 2000MG 2,000 MG/15 ML SYR IV ONE (16:56)
[2022-06-21] MEDS ORDERED: OPTIRAY 300 IV PRN (17:09)
--- NOTE | 2022-06-21 17:49 | Fluoroscopy Report ---
[place] cholangiogram OR CLINICAL HISTORY: CHOLANGIOGRAM TECHNIQUE: 1 views were obtained with the C-arm in the OR with the above procedure. Total fluoroscopy time was 0.8 seconds. Total skin dose was 0.15 mGy. Comparison: None available at the time of this dictation. FINDINGS/IMPRESSION: Intraoperative images were obtained of cholangiogram. Please correlate with intraoperative fluoroscopy and operative report. ACT 112: Negative or not required by law. Electronically signed by: Armando Samano M.D. 06/21/2022 5:48 PM
[2022-06-21] MEDS ORDERED: ACETAMINOPHEN 1000 MG/100 ML IV IV ONE (17:59)
[2022-06-21] MEDS ORDERED: SUGAMMADEX SODIUM 200 MG/2 ML VIAL IV ONE (17:59)
--- NOTE | 2022-06-21 18:51 | Post Operative Brief Note ---
Immediate Post Op Note v1 Date of Surgery June 21, 2022 Pre & Post Diagnosis Operation Date: 06/20/22 09:15 <No data on this case meets the specified criteria> Operation Date: 06/20/22 16:00 Pre-Op Diagnosis: VOMITING, LOWER ABDOMINAL PAIN Post-Op Diagnosis: Mild gastritis Operation Date: 06/21/22 10:35 Pre-Op Diagnosis: Acute cholecystitis.cholelithiasis Post-Op Diagnosis: Acute cholecystitis.Cholelithiasis I identified the patient and participated in the time-out.: Yes Procedure Operation Date: 06/20/22 09:15 <No data on this case meets the specified criteria> Operation Date: 06/20/22 16:00 Actual Procedures p EGD Biopsy Cytology - Tal PamRochelle Case, DO Operation Date: 06/21/22 10:35 Actual Procedures p Laparoscopic Cholecystectomy with Cholangiogram - Sonia Rainey MD Surgeon Sonia Rainey MD [employer] Secrecy Act Officer surgical attendant Estimated Blood Loss 20 Findings Consistent with Post-Op Diagnosis significant inflammation and edema on gallbladder wall, cholangiogram- large gallstone block cyst duct, Fluids 1500ml Specimens gallbladder Anesthesia Type General Complications none Disposition Accompanied Patient To Recovery: Yes
[2022-06-21] MEDS ORDERED: fentaNYL citrate 100 MCG/2 ML VIAL IV PRN (19:18)
[2022-06-21] MEDS ORDERED: ePHEDrine sulfate 50 MG/ML AMP IV PRN (19:18)
[2022-06-21] MEDS ORDERED: METOCLOPRAMIDE HCL INJ 5 MG/ML 2 ML VIAL IV PRN (19:18)
[2022-06-21] MEDS ORDERED: ONDANSETRON INJ 2 MG/ML 2 ML VIAL IV PRN (19:18)
[2022-06-21] MEDS ORDERED: HYDROmorphone INJ 2 MG/ML SYR/VIAL IV PRN (19:18)
[2022-06-21] MEDS ORDERED: ATROPINE SULFATE 0.1 MG/ML 10ML SYR IV PRN (19:18)
--- NOTE | 2022-06-21 19:56 | Anesthesiology Progress Note ---
Date of Service June 21, 2022 Anesthesia Post Procedure Vital Signs Vital Signs: Temp Pulse Pulse Resp BP Pulse Ox O2 Del Method 06/21/22 19:40 37.1 C 70 14 125/60 98 Room Air 06/21/22 19:30 69 13 122/58 L 98 Oxymask 06/21/22 19:20 71 17 126/56 L 99 Oxymask 06/21/22 09:30 69 13 122/58 L 98 Oxymask 06/21/22 09:20 71 17 126/56 L 99 Oxymask 06/21/22 19:10 73 18 127/62 99 Oxymask 06/21/22 09:10 73 18 127/62 99 Oxymask 06/21/22 19:02 36.7 C 76 14 127/72 100 Oxymask 06/21/22 15:20 37.2 C 80 18 122/64 96 Room Air 06/21/22 14:37 36.6 C 81 16 111/66 96 Room Air 06/21/22 11:41 37.1 C 75 18 108/63 97 Room Air 06/21/22 07:57 36.3 C L 06/21/22 07:47 75 18 108/63 97 Room Air 06/20/22 20:08 36.6 C 69 16 121/73 98 Room Air O2 Flow Rate 06/21/22 19:40 06/21/22 19:30 2 06/21/22 19:20 3 06/21/22 09:30 3 06/21/22 09:20 3 06/21/22 19:10 4 06/21/22 09:10 4 06/21/22 19:02 5 06/21/22 15:20 06/21/22 14:37 06/21/22 11:41 06/21/22 07:57 06/21/22 07:47 06/20/22 20:08 Pain Intensity Abdomen: Pain Intensity: 2 Transfer of Care Handoff Completed per policy Notes Mental Status: alert / awake / arousable and participated in evaluation Patient Amnestic to Procedure: Yes Nausea / Vomiting: adequately controlled Pain: adequately controlled Airway Patency, RR, SpO2: stable & adequate BP & HR: stable & adequate Hydration State: stable & adequate Anesthetic Complications: no major complications apparent
[2022-06-22] MEDS: HYDROmorphone INJ 0.5 MG/0.5 ML SYR IV PRN ×2 (03:32→15:59)
[2022-06-22] MEDS: PIPERACILLIN/TAZOBACTAM 3.375 GM in DEXTROSE 5% 100 ML IV SCH ×3 (03:32→20:23)
--- NOTE | 2022-06-22 04:09 | Operative Report (OR) ---
DATE OF SURGERY: 06/21/2022 PREOPERATIVE DIAGNOSIS: Acute cholecystitis, cholelithiasis. POSTOPERATIVE DIAGNOSES: Acute cholecystitis, cholelithiasis. OPERATION: Laparoscopic cholecystectomy, intraoperative cholangiogram. SURGEON: Sonia Rainey MD. ANESTHESIA: General. ESTIMATED BLOOD LOSS: About 20 mL. FINDINGS: Significant inflammation and edema on the gallbladder wall, diagnosis of acute cholecystitis. Intraoperative cholangiogram shows larger stone blocking the cystic duct. COMPLICATIONS: None. INDICATIONS FOR THE PROCEDURE: This is a 22-year-old gentleman who presented to ED with 1-week history of abdominal pain. The patient had a CT scan and ultrasound, MRCP diagnosis of acute cholecystitis with cholelithiasis. I recommended to do laparoscopic cholecystectomy, possible open, possible cholangiogram. I did talk to the patient about the benefit, risk, alternate procedure. I indicated the risks may include, but not limited to, such as bleeding, infection, injury to other organs, bile leak, may need ERCP, incisional hernia, subtotal cholecystectomy, bowel obstruction. The patient understands. He signed informed consent and I answered all questions. DETAILS OF PROCEDURE: After we identified the patient and verified the procedure, we brought the patient to the OR, put the patient in the supine position on the OR table. The patient received SCD on bilateral legs to prevent DVT. Also, the patient received 2 grams of Ancef IV for prophylactic antibiotic. The patient received general anesthesia without difficulty. The abdomen was prepped and draped in routine sterile fashion. After timeout, I injected the local anesthesia by using 1% lidocaine mixed with 0.5% Marcaine just above the umbilicus. Then I made a small incision just above umbilicus, opened fascia, opened peritoneum under direct vision, put a Devante trocar in, connected to CO2 to create pneumoperitoneum, flow rate at 6 liters per minute, pressure not more than 14 mmHg. Once we got a nice pneumoperitoneum, we put a camera in, looked around the abdomen. It shows normal finding on the liver; however, the gallbladder, significant distention with gallbladder wall thickening, edema, confirmed diagnosis of acute cholecystitis. Once we confirmed the diagnosis, I put another two 5 mm trocars on the right upper quadrant, one was 12 trocar on the epigastric area. Once all trocars in, we used the larger needle, decompressed the gallbladder first. Then, we used grasper to hold the base of gallbladder, put in direction to the diaphragm. At this moment, we found the patient had an open dome of the gallbladder formation. I decided to do the intraoperative cholangiogram. I used Lan technique injection of the contrast into the gallbladder. Then, we did x-ray of the abdomen and it shows a large stone blocking the cystic duct. At this moment, we used another grasper to hold the pouch of gallbladder, put a lateral to explore the triangle of Calot. The cystic duct was then identified and mobilized. Because the cystic duct was significant inflammation edema which is not feasible to do cholangiogram, then , we used the 10 mm metal clips on the proximal cystic duct, then used another metal clip to clip the distal cystic duct, then used a scissor for transection of cystic duct; rechecked, no bile leak, no active bleeding. The cystic artery was identified and mobilized. I put two 5 mm metal clips on the proximal cystic artery, one on the distal cystic artery, then used a scissor for transection of cystic artery. Then, we used the Bovie to take down gallbladder from liver bed. Due to significant chronic acute inflammation on the gallbladder, it is difficult to take down gallbladder and we used the Bovie to slowly take down the whole gallbladder without rupture of gallbladder; rechecked the gallbladder fossa, the liver side, no active bleeding and then we removed gallbladder through the catch bag. Then, we reinserted the Devante trocar in, connected to CO2 to create pneumoperitoneum, again looked around the abdomen. Based on the significant chronic and acute inflammation on the liver side gallbladder fossa, there was some blood oozing and we used the Bovie. We decided to use a Surgicel to put on the gallbladder fossa on the liver side. Rechecked, no active bleeding. Then, we removed all trocars under direct vision. No active bleeding from the trocar sites. Pneumoperitoneum was released. Then, I closed the umbilical incision fascial layer by using 3-0 Vicryl [id number] x2, closed subcutaneous layer by using 2-0 Vicryl interruptedly, closed skin by using 4-0 Vicryl continuous running, closed the epigastric incision fascial layer by using 3-0 Vicryl [id number] x2, closed subcutaneous layer by using 2-0 Vicryl interruptedly, closed skin by using 4-0 Vicryl interruptedly, closed another two 5 mm trocar site of skin only by using 4-0 Vicryl. Then, we put the dressing on. The patient tolerated the procedure well. All instrument, needle and sponge counts were correct x2 at the end of the case. The patient was transferred to recovery room in stable condition. The specimen was sent to pathology. After the procedure, I did talk to the patient about the OR finding and the procedure we did. The patient understands. Also, I talked to the patient's friend outside the OR, he understands. Job ID: [id number]
[2022-06-22] MEDS: D5W AND 1/2NSS + 20MEQ KCL 20 MEQ/1,000 ML BAG IV SCH (07:38)
[2022-06-22] MEDS: PANTOprazole 40 MG in SYRINGE 0 ML IV SCH (07:38)
[2022-06-22] MEDS ORDERED: oxyCODONE/ACETAMINOPHEN 5mg/325mg TAB PO PRN (07:48)
[2022-06-22 08:42] LABS: Basophils # (auto) 0.01 K/uL (0-0.2); Basophils % (auto) 0.1 %; Hematocrit (blood only) 38.7 % (40.1-51.0); Hemoglobin 13.6 g/dl (14.0-18.0); Immature Granulocytes # (auto) 0.02 K/uL (0.00-0.02); Immature Granulocytes % (auto) 0.2 %; Lymphocytes # (auto) 1.36 K/uL (1.2-3.4); Lymphocytes % (auto) 14.7 %; Mean Corpuscular Hgb Conc 35.1 g/dL (32.0-36.0); Mean Corpuscular Volume 85.2 fL (80.0-100.0); Mean Platelet Volume 12.2 fL (9.4-12.4); Monocytes # (auto) 0.86 K/uL (0.24-0.82); Monocytes % (auto) 9.3 %; Neutrophils # (auto) 6.98 K/uL (1.4-6.5); Neutrophils % (auto) 75.7 %; Platelet Count 178 K/uL (130-400); RDW Coefficient of Variation 11.3 % (11.5-14.5); RDW Standard Deviation 34.9 fL (36.4-46.3); Red Blood Count 4.54 M/uL (4.63-6.08); White Blood Count 9.23 K/ul (4.8-10.8)
[2022-06-22 09:10] LABS: Alanine Aminotransferase 60 U/L (7-52); Albumin Globulin Ratio 1.6 (0.9-2); Albumin Level 4.1 gm/dl (3.4-5.0); Alkaline Phosphatase 85 U/L (34-104); Anion Gap 5 (3-11); Aspartate Aminotransferase 38 U/L (13-39); BUN Creatinine Ratio 7.2 (10-20); Blood Urea Nitrogen 5 mg/dl (6-23); Calcium 9.1 mg/dl (8.5-10.1); Carbon Dioxide 32 mmol/L (21-32); Chloride 102 mmol/L (98-107); Creatinine Clr Calc Pharmacy 187.4 ml/min; Est GFR (African American) > 150.0 ml/min; Est GFR (Non-African American) 136.7 ml/min; Globulin 2.6 gm/dl (2.5-4.0); Glucose 96 mg/dl (70-99(Fasting)); Potassium 3.6 mmol/L (3.5-5.1); Sodium 139 mmol/L (136-145); Total Protein 6.7 gm/dl (6.0-8.3)
[2022-06-22] MEDS: oxyCODONE/ACETAMINOPHEN 5mg/325mg TAB PO PRN ×2 (09:27→18:42)
--- NOTE | 2022-06-22 10:44 | Surgery Progress Note ---
Date of Service June 22, 2022 Assessment & Plan (1) Acute cholecystitis: Plan: pt is a 22 year-old male who presents to ER with one day history abdominal pain, IMP: acute cholecystitis, cholelithiasis, Plan : I recommend to admit pt to hospital , NPO IV fluid, iv antibiotic, control pain, base on CT finding- abnormally gallbladder position, order MRCP, once confirm diagnosis, I recommend to do laparoscopic cholecystectomy, possible open or cholangiogram, D/W benefits, risks and alternatives of the surgery, the risks - infection, bleeding, injury other organs, CBD stone may need ERCP, incisional hernia, pt understood, he agrees with the plan and surgery, I answered all questions, 06/20/2022 10:48AM, I reviewed MRCP with pt, diagnosis- acute cholecystitis, cholelithiasis, I recommend to do laparoscopic cholecystectomy, possible open, or cholangiogram, D/W benefits, risks and alternatives of the surgery, the risks - infection,bleeding, injury other organs, biliary leak, may need ERCP, incision hernia, but pt refused to surgery, pt said his family want to keep his gallbladder, I indicated may cause gangrenous gallbladder , perforation, sepsis and , pt understood, he is still refused to do surgery, I answered all questions, base on pt has LUQ pain, consult GI for EGD to R/O gastric ulcer, pt agrees with the EGD, continue conservative treatment, 06/21/2022 2:10PM F/U acute cholecystitis, cholelithiasis, I reviewed GI note and EGD finding, I recommend to do laparoscopic cholecystectomy, possible open, or cholangiogram, D/W benefits, risks and alternatives of the surgery, the risks - infection,bleeding, injury other organs, biliary leak, may need ERCP, incision hernia, but pt refused to surgery, pt said his family and he agree with surgery, pt signed informed consent, I answered all questions, 06/22/2022 10 :41AM F/U S/P lap sintia, POD 1 I update about OR finding and octavia procedure pt had, pt understood, doing fine, tolerated clear diet, regular diet, OOB pt had no family member in this town, pt wants to stay one more day for good control incision pain, will F/U Admission and Anticipated Discharge Date Admission Date: June 20, 2022 Supervising Physician Co-Signing Physician Notes Agree with Lilli Noble PAC as above Abd: Soft, Tender LUQ, ND, +BS Continue current therapy EGD now Further recommendations to follow Subjective pt had MRCP done, I reviewed MRCP with pt, IMPRESSION: 1. Cholelithiasis with acute cholecystitis. 2. No biliary ductal dilation or choledocholithiasis. 3. The exam is motion degraded. pt is still have LUQ and epigastric pain, no nausea, no vomiting, no fever, 06/21/2022 2:10PM pt is still have RUQ and LUQ pain, no nausea and vomiting, no fever, EGD- gastritis. 06/22/2022 10:39AM F/U S/P lap sintia, POD 1 pt is doing fine, god control incision pain, no nausea, no vomiting, tolerated clear diet, no fever, Physical Exam Constitutional: WD/WN, vitals as above Eyes: PERRL, conjunctivae normal, anicteric sclerae Neck: trachea midline, no thyromegaly Respiratory: normal respiratory effort, lungs clear to auscultation Cardiovascular: RRR, no murmur, no edema Gastrointestinal (Abdomen): soft, mild tenderness at incision sites, no rebound pain, no distend, BS +, all incisions intact, no redness, Musculoskeletal: no cyanosis or clubbing, extremities motor strength 5/5 Neurologic: patellar DTR's 2+ bilat, sensation intact Psychiatric: A+Ox3, euthymic affect Results & Data ([facility]) Vital Signs (Past 12 Hours) Vital Signs Temp Pulse Resp BP Pulse Ox O2 Del Method 06/22/22 07:23 36.5 C 63 16 111/65 98 06/22/22 03:35 36.8 C 60 16 112/66 96 Room Air 06/21/22 23:22 36.5 C 95 H 16 105/67 95 Room Air Laboratory Results Abnormal lab results 06/22/22 06/22/22 Range/Units 07:57 07:57 RBC 4.54 L (4.63-6.08) M/uL Hgb 13.6 L (14.0-18.0) g/dl Hct 38.7 L (40.1-51.0) % RDW Std Deviation 34.9 L (36.4-46.3) fL RDW Coeff of Yasir 11.3 L (11.5-14.5) % Neut # (Auto) 6.98 H (1.4-6.5) K/uL [place] # (Auto) 0.86 H (0.24-0.82) K/uL BUN 5 L (6-23) mg/dl BUN/Creatinine Ratio 7.2 L (10-20) ALT 60 H (7-52) U/L
[2022-06-22] MEDS ORDERED: ACETAMINOPHEN 325 MG TAB PO PRN (16:33)
[2022-06-23] MEDS: oxyCODONE/ACETAMINOPHEN 5mg/325mg TAB PO PRN (03:53)
[2022-06-23] MEDS: PIPERACILLIN/TAZOBACTAM 3.375 GM in DEXTROSE 5% 100 ML IV SCH ×2 (04:14→12:09)
--- NOTE | 2022-06-23 08:29 | Surgery Progress Note ---
Date of Service June 23, 2022 Assessment & Plan (1) Acute cholecystitis: Plan: pt is a 22 year-old male who presents to ER with one day history abdominal pain, IMP: acute cholecystitis, cholelithiasis, Plan : I recommend to admit pt to hospital , NPO IV fluid, iv antibiotic, control pain, base on CT finding- abnormally gallbladder position, order MRCP, once confirm diagnosis, I recommend to do laparoscopic cholecystectomy, possible open or cholangiogram, D/W benefits, risks and alternatives of the surgery, the risks - infection, bleeding, injury other organs, CBD stone may need ERCP, incisional hernia, pt understood, he agrees with the plan and surgery, I answered all questions, 06/20/2022 10:48AM, I reviewed MRCP with pt, diagnosis- acute cholecystitis, cholelithiasis, I recommend to do laparoscopic cholecystectomy, possible open, or cholangiogram, D/W benefits, risks and alternatives of the surgery, the risks - infection,bleeding, injury other organs, biliary leak, may need ERCP, incision hernia, but pt refused to surgery, pt said his family want to keep his gallbladder, I indicated may cause gangrenous gallbladder , perforation, sepsis and , pt understood, he is still refused to do surgery, I answered all questions, base on pt has LUQ pain, consult GI for EGD to R/O gastric ulcer, pt agrees with the EGD, continue conservative treatment, 06/21/2022 2:10PM F/U acute cholecystitis, cholelithiasis, I reviewed GI note and EGD finding, I recommend to do laparoscopic cholecystectomy, possible open, or cholangiogram, D/W benefits, risks and alternatives of the surgery, the risks - infection,bleeding, injury other organs, biliary leak, may need ERCP, incision hernia, but pt refused to surgery, pt said his family and he agree with surgery, pt signed informed consent, I answered all questions, 06/22/2022 10 :41AM F/U S/P lap sintia, POD 1 I update about OR finding and octavia procedure pt had, pt understood, doing fine, tolerated clear diet, regular diet, OOB pt had no family member in this town, pt wants to stay one more day for good control incision pain, will F/U 06/23/2022 8:28AM F/U S/P lap sintia, POD 2 doing fine, tolerated diet, D/C home today, post-op care instruction was given, pt understood, I answered all questions, F/U 2 weeks, Admission and Anticipated Discharge Date Admission Date: June 20, 2022 Supervising Physician Co-Signing Physician Notes Agree with MARITA Schrader as above Abd: Soft, Tender LUQ, ND, +BS Continue current therapy EGD now Further recommendations to follow Subjective pt had MRCP done, I reviewed MRCP with pt, IMPRESSION: 1. Cholelithiasis with acute cholecystitis. 2. No biliary ductal dilation or choledocholithiasis. 3. The exam is motion degraded. pt is still have LUQ and epigastric pain, no nausea, no vomiting, no fever, 06/21/2022 2:10PM pt is still have RUQ and LUQ pain, no nausea and vomiting, no fever, EGD- gastritis. 06/22/2022 10:39AM F/U S/P lap sintia, POD 1 pt is doing fine, god control incision pain, no nausea, no vomiting, tolerated clear diet, no fever, 06/23/2022 8:26AM F/U S/P lap sintia, POD 2 pt is doing fine, god control incision pain, no nausea, no vomiting, tolerated clear diet, no fever, pt tolerated regular diet, Physical Exam Constitutional: WD/WN, vitals as above Eyes: PERRL, conjunctivae normal, anicteric sclerae Neck: trachea midline, no thyromegaly Respiratory: normal respiratory effort, lungs clear to auscultation Cardiovascular: RRR, no murmur, no edema Gastrointestinal (Abdomen): soft, mild tenderness at incision site, no rebound pian, no distend, all incisions intact, no redness, BS + Musculoskeletal: no cyanosis or clubbing, extremities motor strength 5/5 Neurologic: patellar DTR's 2+ bilat, sensation intact Psychiatric: A+Ox3, euthymic affect Results & Data ([facility] [place]) Vital Signs (Past 12 Hours) Vital Signs Temp Pulse Pulse Resp BP Pulse Ox O2 Del Method 06/23/22 07:23 36.6 C 76 16 106/57 L 97 06/22/22 22:42 36.4 C L 72 16 107/64 98 Room Air
[2022-06-23] MEDS ORDERED: PANTOprazole 40 MG TAB PO SCH (09:00)
[2022-06-23] MEDS ORDERED: POLYETHYLENE (MIRALAX) 17 GM PACK PO SCH (09:00)
--- NOTE | 2022-06-23 12:08 | Discharge Summary (DS) ---
DATE OF ADMISSION: 06/19/2022. DATE OF DISCHARGE: 06/23/2022. ADMISSION DIAGNOSES: Acute cholecystitis, cholelithiasis. DISCHARGE DIAGNOSES: Acute cholecystitis, cholelithiasis. OPERATION: Laparoscopic cholecystectomy and EGD. SURGEON: Sonia Rainey MD. DETAILS OF DISCHARGE SUMMARY: This is a 22-year-old gentleman who presented to ED with one-week history of abdominal pain. The patient had ultrasound, CT scan, and MRI diagnosis of acute cholecystitis, cholelithiasis. We took the patient to the OR, we did laparoscopic cholecystectomy. The patient tolerated the procedure well. After the procedure, the patient returned to the recovery room and later on transferred to regular floor, the patient is doing fine and today is postoperative day #2, the patient is doing fine. Mild incisional pain and tolerated a regular diet. No nausea, no vomiting, no fever. PHYSICAL EXAMINATION: VITAL SIGNS: Temperature is 36.6, respiratory rate of 16, heart rate of 76, blood pressure 106/57, O2 saturation 97% on room air. GENERAL: The patient is alert, awake, oriented x3. HEENT: Within normal limitation. NEUROLOGIC: Intact. NECK: No JVD. CHEST: Bilateral lung sounds clear. HEART: Normal S1 and S2. No murmur. ABDOMEN: Soft, mild tenderness on the incision site. No rebound, no pain, no distention. Bowel sounds positive. All the incisions are intact. No redness. EXTREMITIES: No edema. The patient wanted to go home today. We gave the patient postop care instruction. I will follow up the patient in 2 weeks. The patient understands. Also, during the hospital stay, the patient had an EGD done that showed acute gastritis and we gave the patient Protonix to treat the gastritis. DISCHARGE MEDICATIONS: Include Protonix and Percocet and Augmentin. Job ID: [id number] [facility]
== END 2022-06-23 18:30 | disposition home or self-care (01) | DRG 419 ==
LOC: ED 23:45 → 3E 06-20 02:38